=== PATIENT | female | born 1945 | race Caucasian/White ===

== ENCOUNTER 2022-10-18 09:31 | Inpatient (IN) | payer MEDICARE ==
[~2022-10-18] VITALS: Ht 162.6 cm; Wt 98.6 kg
[2022-10-18] MEDS ORDERED: SODIUM CHLORIDE 0.9% 1,000 ML IV ONE (09:45)
[2022-10-18] MEDS ORDERED: DIPHENOXYLATE W/ATROPINE 2.5 MG TAB PO ONE (09:45)
[2022-10-18] MEDS ORDERED: cloNIDine HCL 0.1 MG TAB PO ONE (10:00)
[2022-10-18 10:23] LABS: Albumin 3.7 g/dL (3.4-5.0); Calcium 8.1 mg/dL (8.5-10.1)
[2022-10-18 10:27] LABS: BUN/Creatinine Ratio 17.6; Bilirubin, Total 0.5 mg/dL (0.2-1.0); Total Protein 6.3 g/dL (6.4-8.2)
[2022-10-18 10:48] LABS: Basophils # (auto) 0 10 ^3/uL (0-0.2); Basophils % (auto) 0.7 % (0.0-2.0); Eosinophils # (auto) 0.3 10 ^3/uL (0-0.8); Eosinophils % (auto) 4.5 % (0.0-7.0); Hematocrit 38.5 % (36.0-46.0); Lymphocytes % (auto) 16.4 % (10.0-50.0); Mean Corpuscular Hemoglobin 31.8 pg (28.0-32.0); Mean Corpuscular Hgb Conc. 33.8 g/dL (32.0-36.0); Mean Corpuscular Volume 93.9 fL (80.0-100.0); Monocytes # (auto) 0.4 10 ^3/uL (0-1.3); Monocytes % (auto) 5.9 % (0.0-12.0); Neutrophils # (auto) 4.5 10 ^3/uL (1.6-8.6); Neutrophils % (auto) 72.5 % (37.0-80.0); Nucleated Red Blood Cells % 0.1 %; Red Cell Distribution Width 14.9 % (11.8-14.3); White Blood Cell 6.2 10^3/uL (4.4-10.8)
[2022-10-18] MEDS ORDERED: LOPERAMIDE HCL 2 MG CAP/TAB PO PRN (15:15)
[2022-10-18] MEDS ORDERED: DOCUSATE SOD 100 MG CAP PO PRN (15:15)
[2022-10-18] MEDS ORDERED: DEXTROSE (50%) 50ML SYRG IV PRN (15:15)
[2022-10-18] MEDS ORDERED: MORPHINE SULFATE INJ 2 MG/ml SYRG IV PRN (15:15)
[2022-10-18] MEDS: ONDANSETRON HCL 4 MG/2 ML VIAL IV PRN ×2 (17:02→21:43)
[2022-10-18] MEDS: SODIUM CHLORIDE 0.9% 1,000 ML IV SCH (17:40)
[2022-10-18] MEDS: ACCU-CHEK COMFORT CURVE STRIP VI SCH ×2 (17:42→23:14)
[2022-10-18] MEDS: InsuLIN REG 1unit/0.01ml Soln (100units/ml) SC SCH ×2 (17:42→23:22)
[2022-10-18] MEDS ORDERED: hydrALAZINE HCL 20 MG/ML VL IV PRN (20:30)
[2022-10-19] MEDS: SODIUM CHLORIDE 0.9% 1,000 ML IV SCH ×2 (00:10→08:57)
[2022-10-19] MEDS: ONDANSETRON HCL 4 MG/2 ML VIAL IV PRN ×2 (03:21→11:49)
[2022-10-19] MEDS ORDERED: ACETAMINOPHEN 325 MG TAB PO PRN (05:45)
[2022-10-19 06:33] LABS: Potassium 3.6 mmol/L (3.5-5.1)
[2022-10-19 06:43] LABS: Albumin 3.7 g/dL (3.4-5.0); BUN/Creatinine Ratio 11.9; Bilirubin, Total 0.6 mg/dL (0.2-1.0); Calcium 8.1 mg/dL (8.5-10.1); Total Protein 6.5 g/dL (6.4-8.2)
[2022-10-19 06:57] LABS: Basophils # (auto) 0 10 ^3/uL (0-0.2); Basophils % (auto) 0.5 % (0.0-2.0); Eosinophils # (auto) 0.2 10 ^3/uL (0-0.8); Eosinophils % (auto) 4.1 % (0.0-7.0); Hematocrit 37.6 % (36.0-46.0); Hemoglobin 12.9 g/dL (12.2-16.2); Lymphocytes # (auto) 1.1 10 ^3/uL (0.4-5.4); Lymphocytes % (auto) 18.2 % (10.0-50.0); Mean Corpuscular Hemoglobin 32.1 pg (28.0-32.0); Mean Corpuscular Hgb Conc. 34.4 g/dL (32.0-36.0); Mean Corpuscular Volume 93.4 fL (80.0-100.0); Monocytes # (auto) 0.4 10 ^3/uL (0-1.3); Monocytes % (auto) 6.7 % (0.0-12.0); Neutrophils # (auto) 4.1 10 ^3/uL (1.6-8.6); Neutrophils % (auto) 70.5 % (37.0-80.0); Nucleated Red Blood Cells % 0.2 %; Red Blood Cells 4.03 10^6/uL (4.0-5.20); Red Cell Distribution Width 14.9 % (11.8-14.3); White Blood Cell 5.9 10^3/uL (4.4-10.8)
[2022-10-19] MEDS: ACCU-CHEK COMFORT CURVE STRIP VI SCH ×3 (07:49→21:49)
[2022-10-19] MEDS: InsuLIN REG 1unit/0.01ml Soln (100units/ml) SC SCH ×3 (07:54→21:48)
[2022-10-19] MEDS ORDERED: LORazepam 0.5 MG TAB PO PRN (09:45)
[2022-10-19] MEDS ORDERED: LORazepam 2MG/ML-1ML VIAL IV PRN (09:45)
[2022-10-19] MEDS ORDERED: LEVOTHYROXINE SODIUM 50 MCG TAB PO ONE ×2 (10:00→10:15)
[2022-10-19] MEDS: PANTOPRAZOLE 40 MG/10 ML VIAL INJ IV SCH (10:59)
[2022-10-19] MEDS: VENLAFAXINE HCL 37.5mg XR cap PO SCH ×2 (10:59→21:46)
[2022-10-19] MEDS: HCTZ 25 MG TAB PO SCH (11:01)
[2022-10-19] MEDS: ENOXAPARIN SOD 40 MG/0.4 ML SYRINGE SC SCH (11:06)
[2022-10-19] MEDS ORDERED: ONDANSETRON HCL 4 MG/2 ML VIAL IV PRN (13:45)
[2022-10-19 15:05] VITALS: BP 172/77
[2022-10-19] MEDS ORDERED: CETI1TAB36 PO (15:30)
[2022-10-19] MEDS ORDERED: DOCU1CAP46 PO (15:30)
[2022-10-19] MEDS ORDERED: ASPI325T4 PO (15:30)
[2022-10-19] MEDS ORDERED: ATOR20TA50 PO (15:30)
[2022-10-19] MEDS ORDERED: LEV50T PO (15:30)
[2022-10-19] MEDS ORDERED: OMEP20TA PO (15:30)
[2022-10-19] MEDS ORDERED: VENL-165 PO (15:30)
[2022-10-19] MEDS ORDERED: ATEN-60 PO (15:30)
[2022-10-19] MEDS ORDERED: HYDR25TA5 GT (15:30)
[2022-10-19] MEDS ORDERED: METF-370 PO (15:30)
[2022-10-19] MEDS ORDERED: POLYSOL2 EACHEYE (15:30)
[2022-10-19 18:20] VITALS: BP 160/81
[2022-10-19 22:00] VITALS: BP 148/64
[2022-10-20 05:08] VITALS: BP 126/80
[2022-10-20] MEDS: InsuLIN REG 1unit/0.01ml Soln (100units/ml) SC SCH ×4 (06:17→21:57)
[2022-10-20] MEDS: LEVOTHYROXINE SODIUM 50 MCG TAB PO SCH (06:17)
[2022-10-20] MEDS: ACCU-CHEK COMFORT CURVE STRIP VI SCH ×4 (06:18→21:57)
[2022-10-20 08:31] LABS: Urine Bacteria FEW /hpf (None Seen); Urine Blood 1+ /uL (Negative); Urine Mucus FEW (None Seen); Urine Specific Gravity 1.019 (1.001-1.035); Urine WBC 3278 /hpf (0 - 5); Urine WBC Clumps PRESENT /hpf (None Seen)
[2022-10-20 09:00] VITALS: BP 150/77
[2022-10-20] MEDS: VENLAFAXINE HCL 37.5mg XR cap PO SCH ×2 (10:00→22:02)
[2022-10-20] MEDS: PANTOPRAZOLE 40 MG/10 ML VIAL INJ IV SCH (10:07)
[2022-10-20] MEDS: HCTZ 25 MG TAB PO SCH (10:08)
[2022-10-20] MEDS: ENOXAPARIN SOD 40 MG/0.4 ML SYRINGE SC SCH (10:09)
[2022-10-20] MEDS ORDERED: DEXTROSE 50% SYRINGE 50 ML IV ONE (11:33)
[2022-10-20 13:00] VITALS: BP 121/61
[2022-10-20 13:43] LABS: Basophils # (auto) 0.1 10 ^3/uL (0-0.2); Basophils % (auto) 0.9 % (0.0-2.0); Eosinophils # (auto) 0.2 10 ^3/uL (0-0.8); Eosinophils % (auto) 3.4 % (0.0-7.0); Hematocrit 40.3 % (36.0-46.0); Hemoglobin 13.5 g/dL (12.2-16.2); Lymphocytes # (auto) 1.3 10 ^3/uL (0.4-5.4); Lymphocytes % (auto) 18.3 % (10.0-50.0); Mean Corpuscular Hemoglobin 31.2 pg (28.0-32.0); Mean Corpuscular Hgb Conc. 33.4 g/dL (32.0-36.0); Mean Corpuscular Volume 93.2 fL (80.0-100.0); Monocytes # (auto) 0.5 10 ^3/uL (0-1.3); Monocytes % (auto) 6.5 % (0.0-12.0); Neutrophils # (auto) 5.2 10 ^3/uL (1.6-8.6); Neutrophils % (auto) 70.9 % (37.0-80.0); Nucleated Red Blood Cells % 0.1 %; Red Blood Cells 4.32 10^6/uL (4.0-5.20); Red Cell Distribution Width 14.5 % (11.8-14.3); White Blood Cell 7.4 10^3/uL (4.4-10.8)
[2022-10-20] MEDS ORDERED: ARTIFICIAL TEARS 15ml EACHEYE PRN (13:45)
[2022-10-20] MEDS ORDERED: CEFTRIAXONE SODIUM 2 GM in D5W 5% 50 ML IV ONE (13:45)
[2022-10-20 13:59] LABS: Calcium 8.6 mg/dL (8.5-10.1); Potassium 3.2 mmol/L (3.5-5.1)
[2022-10-20 14:03] LABS: Bilirubin, Total 0.8 mg/dL (0.2-1.0)
[2022-10-20 14:58] LABS: BUN/Creatinine Ratio 12.4
[2022-10-20] MEDS ORDERED: POTASSIUM CHL 20 Meq TABLET PO ONE (15:15)
[2022-10-20] MEDS: diphenhdrAMINE HCL 25 MG CAP PO PRN ×2 (15:31→22:02)
[2022-10-20 16:49] VITALS: BP 133/66
[2022-10-20] MEDS: metFORMIN HYDROCHLORIDE 500 MG TAB PO SCH (17:37)
[2022-10-20 20:00] VITALS: BP 130/66
[2022-10-20 21:49] VITALS: BP 130/66
[2022-10-21 04:44] VITALS: BP 138/57
[2022-10-21] MEDS: LEVOTHYROXINE SODIUM 50 MCG TAB PO SCH (05:57)
[2022-10-21 06:42] LABS: Basophils # (auto) 0 10 ^3/uL (0-0.2); Basophils % (auto) 0.7 % (0.0-2.0); Eosinophils # (auto) 0.3 10 ^3/uL (0-0.8); Eosinophils % (auto) 4.7 % (0.0-7.0); Hematocrit 37.4 % (36.0-46.0); Hemoglobin 12.8 g/dL (12.2-16.2); Lymphocytes # (auto) 1.5 10 ^3/uL (0.4-5.4); Lymphocytes % (auto) 24.8 % (10.0-50.0); Mean Corpuscular Hemoglobin 31.5 pg (28.0-32.0); Mean Corpuscular Hgb Conc. 34.1 g/dL (32.0-36.0); Mean Corpuscular Volume 92.6 fL (80.0-100.0); Monocytes # (auto) 0.6 10 ^3/uL (0-1.3); Neutrophils # (auto) 3.6 10 ^3/uL (1.6-8.6); Neutrophils % (auto) 59.8 % (37.0-80.0); Nucleated Red Blood Cells % 0.1 %; Red Blood Cells 4.05 10^6/uL (4.0-5.20); Red Cell Distribution Width 14.2 % (11.8-14.3)
[2022-10-21 06:51] LABS: Calcium 8.6 mg/dL (8.5-10.1); Magnesium 2.2 mg/dL (1.6-2.6); Potassium 3.4 mmol/L (3.5-5.1)
[2022-10-21 06:52] LABS: BUN/Creatinine Ratio 21.4
[2022-10-21 08:00] VITALS: BP 151/58
[2022-10-21] MEDS: metFORMIN HYDROCHLORIDE 500 MG TAB PO SCH (08:25)
[2022-10-21 09:00] VITALS: BP 151/58
[2022-10-21] MEDS ORDERED: cefTRIAXone 1GM/50ML D5W 50 ML IV SCH (09:00)
[2022-10-21] MEDS ORDERED: ASPirin 81 mg TAB PO SCH (10:00)
[2022-10-21] MEDS ORDERED: DOCUSATE CALCIUM 240 MG CAP PO SCH (10:00)
[2022-10-21] MEDS ORDERED: ATENOLOL 25 MG TAB PO SCH (10:00)
[2022-10-21] MEDS: PANTOPRAZOLE 40 MG/10 ML VIAL INJ IV SCH (10:00)
[2022-10-21] MEDS: VENLAFAXINE HCL 37.5mg XR cap PO SCH (10:17)
[2022-10-21] MEDS: HCTZ 25 MG TAB PO SCH (10:18)
[2022-10-21] MEDS: ENOXAPARIN SOD 40 MG/0.4 ML SYRINGE SC SCH (10:21)
[2022-10-21] MEDS: InsuLIN REG 1unit/0.01ml Soln (100units/ml) SC SCH (11:30)
[2022-10-21] MEDS: ACCU-CHEK COMFORT CURVE STRIP VI SCH (11:30)
[2022-10-21] MEDS: diphenhdrAMINE HCL 25 MG CAP PO PRN (12:01)
[2022-10-21 13:00] VITALS: BP 120/59
[2022-10-21] MEDS ORDERED: POLYSOL2 EACHEYE (13:41)
[2022-10-21] MEDS ORDERED: CEPH-510 PO (13:42)
[2022-10-21 14:45] VITALS: BP 120/59
== END 2022-10-21 15:00 | disposition home or self-care (01) | DRG 392 ==
LOC: ER 09:31 → EDBD 09:31 → TELE 15:20 → EAST 10-19 13:28 → TELE-WESTW 10-19 18:00
PROVIDERS: ADMIT Nurse Practitioner Family; ATTEND Internal Medicine
DX: R19.7 Diarrhea, unspecified (principal); N39.0 Urinary tract infection, site not specified; R55 Syncope and collapse; E03.9 Hypothyroidism, unspecified; E11.65 Type 2 diabetes mellitus with hyperglycemia; E78.5 Hyperlipidemia, unspecified; F41.9 Anxiety disorder, unspecified; I10 Essential (primary) hypertension; K59.00 Constipation, unspecified; K80.20 Calculus of gallbladder without cholecystitis without obstruction; R29.6 Repeated falls; Z96.653 Presence of artificial knee joint, bilateral; Z20.822 Contact with and (suspected) exposure to COVID-19; Z59.00 Homelessness unspecified; Z81.8 Family history of other mental and behavioral disorders; Z82.49 Family history of ischemic heart disease and other diseases of the circulatory system; Z83.3 Family history of diabetes mellitus; Z88.7 Allergy status to serum and vaccine
CPT/HCPCS: 36415; 70450; 74176; 80048; 80053; 81001; 82248; 82378; 82962; 83036; 83735; 84443; 84484; 85025; 86301; 87086; 87426; 87804; 93306; 93886; 96360; 96361; C9113; G0378; J0696; J1815; J2405; J7060